=== PATIENT | female | born 2000 | race Caucasian/White ===

== ENCOUNTER → 2025-03-09 | Outpatient (CLI) | payer BC | LOC: M WHC 16:06 | PROVIDERS: ATTEND Student in an Organized Health Care Education/Training Program | DX: Z34.80 Encounter for supervision of other normal pregnancy, unspecified trimester (principal); Z53.9 Procedure and treatment not carried out, unspecified reason ==

== ENCOUNTER → 2025-04-06 | Outpatient (CLI) | payer BC ==
[2025-04-06 18:17] LABS: PLATELET COUNT, AUTOMATED 221 10^3/uL (150-450)
[2025-04-06 18:43] LABS: GLUCOSE CHALLENGE TEST 1 HOUR 99 MG/DL (LESS THAN 140)
[2025-04-06 19:12] LABS: HIV 1&2 SCREEN NEGATIVE (NEGATIVE)
[2025-04-06 19:20] LABS: HEPATITIS C VIRUS ABY INDEX < 0.02 INDEX (<0.8)
[2025-04-06 19:32] LABS: Trichomonas vaginalis (AMP) NOT DETECTED (NEGATIVE)
[2025-04-06 19:56] LABS: GC DNA AMPLIFICATION NEGATIVE (NEGATIVE)
== END ==
LOC: M PLALAB 14:23
PROVIDERS: ATTEND Student in an Organized Health Care Education/Training Program
DX: O30.042 Twin pregnancy, dichorionic/diamniotic, second trimester (principal); Z3A.00 Weeks of gestation of pregnancy not specified

== ENCOUNTER → 2025-04-14 | Outpatient (CLI) | payer BC | LOC: M WHC 07:58 | PROVIDERS: ATTEND Student in an Organized Health Care Education/Training Program | DX: Z34.80 Encounter for supervision of other normal pregnancy, unspecified trimester (principal) ==

== ENCOUNTER → 2025-05-16 | Outpatient (CLI) | payer BC | LOC: M WHC 12:03 | PROVIDERS: ATTEND Student in an Organized Health Care Education/Training Program | DX: O30.042 Twin pregnancy, dichorionic/diamniotic, second trimester (principal) ==

== ENCOUNTER → 2025-06-13 | Outpatient (CLI) | payer BC | LOC: M WHC 11:59 | PROVIDERS: ATTEND Student in an Organized Health Care Education/Training Program | DX: O30.042 Twin pregnancy, dichorionic/diamniotic, second trimester (principal) ==

== ENCOUNTER → 2025-06-22 | Outpatient (REF) | payer BC ==
[2025-06-24 15:02] LABS: CHLAMYDIA TRACHOMATIS NAA NOT DETECTED (NOT DETECTED)
[2025-06-24 15:17] LABS: CANDIDA GLABRATA NAA NOT DETECTED (NOT DETECTED); TRICH VAG BY NAA NOT DETECTED (NOT DETECTED)
[2025-06-24 15:27] LABS: BVAB 2 NEGATIVE (NEGATIVE)
== END ==
LOC: M SFHCWAGY 15:19
PROVIDERS: ATTEND Advanced Practice Midwife
DX: N76.0 Acute vaginitis (principal)